=== PATIENT | female | born 1970 | race African-American/Black ===

== ENCOUNTER 2016-04-20 23:00 | Observation (INO) | payer MEDICAID, OTHER ==
[~2016-04-20] VITALS: Ht 172.7 cm; Wt 118.0 kg
[~2016-04-20 23:00] MED LIST: NAPR220T95 PO; TRAM50 PO
[2016-04-20 23:09] VITALS: BP 120/72; PULSE 82; RESP 16; TEMP 98.4; O2SAT 99
[2016-04-21] VITALS (8 sets, daily range): BP systolic 100–132; BP diastolic 58–73; PULSE 65–82; RESP 14–16; TEMP 98.4; O2SAT 98–100
--- NOTE | 2016-04-21 01:10 | PD ---
HPI Chief Complaint: Skin Problem Time Seen by Provider: 00:11 Travel History International Travel<30 days: No Contact w/Intl Traveler<30days: No Traveled to known affect area: No History of Present Illness HPI This is a pleasant 45-year-old female who arrives to the ER complaining of face rash for about 2 weeks. The rash is painful. The pain is constant and worse with palpation. She tried a blue Star ointment as well as lemon juice and peroxide at home. The aunt thinks may palpable little bit. She's had no visual change. She's had no tinnitus otalgia or otorrhea. She denies fever or recent injury to the affected areas. No similar prior episode has occurred. She denies a past medical history. She had a total abdominal hysterectomy couple years prior. She denies exposure to potential environmental allergens children's. She does not smoke tobacco or drink alcohol. Additionally she notes today lesion on the second left distal phalanx. PFSH Past Medical History Diabetes: Yes Patient Takes Glucophage: No Diminished Hearing: No Integumentary: Yes Immunizations Current: Yes Tetanus Vaccination: > 5 Years Influenza Vaccination: No ?: Not Tubal Ligation: Yes Past Surgical History Hysterectomy: Yes (Complete 2014) Social History Alcohol Use: No Tobacco Use: No Substance Use: No Allergies-Medications (Allergen,Severity, Reaction): Coded Allergies: No Known Allergies (Verified , 04/21/16) Reported Meds & Prescriptions Reported Meds & Active Scripts Active No Active Prescriptions or Reported Medications Review of Systems General / Constitutional: No: Fever Skin: Positive Rash Physical Exam Narrative GENERAL: 45-year-old female pleasant SKIN: Warm and dry. Clusters of hyperpigmented vesicular lesions about the forehead, about the upper neck, about the external ear without involvement of the ext auditory canal or TM, no involvement of the nose, no involvement of the eyes. Lesions are tender to palpation. There is no bleeding of discharge. HEAD: Atraumatic. Normocephalic. EYES: Pupils equal and round. No scleral icterus. No injection or drainage. ENT: No nasal bleeding or discharge. Mucous membranes pink and moist. NEUROLOGICAL: Awake and alert. No obvious cranial nerve deficits. Motor grossly within normal limits. Five out of 5 muscle strength in the arms and legs. Normal speech. PSYCHIATRIC: Appropriate mood and affect; insight and judgment normal. Data Data Last Documented VS Vital Signs Date Time Temp Pulse Resp B/P Pulse Ox O2 Delivery O2 Flow Rate FiO2 04/21/16 00:40 16 04/21/16 00:24 98.4 82 120/72 99 VS noted Orders Complete Blood Count With Diff (04/21/16 01:12) Comprehensive Metabolic Panel (04/21/16 01:12) Blood Culture (04/21/16 01:12) Wound Culture And Gram Stain (04/21/16 01:12) Ecg Monitoring (04/21/16 01:12) Iv Access Insert/Monitor (04/21/16 01:12) Oximetry (04/21/16 01:12) Oxygen Administration (04/21/16 01:12) Acyclovir Inj (Zovirax Inj) (04/21/16 01:30) Methylprednisolone So Succ Inj (Solumedr (04/21/16 02:00) Clindamycin Inj (Cleocin Inj) (04/21/16 02:00) Place In Observation (04/21/16 ) Vital Signs (Adult) Q4H (04/21/16 02:19) Activity Oob With Assistance (04/21/16 02:19) Inventory Associate And Driver / Telemetry .CONTINUOUS (04/21/16 02:19) Diet Heart Healthy (04/21/16 Breakfast) Sodium Chloride 0.9% Flush (Ns Flush) (04/21/16 02:30) Sodium Chloride 0.9% Flush (Ns Flush) (04/21/16 09:00) Basic Metabolic Panel (Bmp) (04/22/16 06:00) Complete Blood Count With Diff (04/22/16 06:00) Case Management Consult (04/21/16 02:19) Enoxaparin Inj (Lovenox Inj) (04/21/16 09:00) Naloxone Inj (Narcan Inj) (04/21/16 02:30) Admit Order (Ed Use Only) (04/21/16 02:26) Labs Laboratory Tests Test 04/21/16 02:10 White Blood Count 7.6 TH/MM3 Red Blood Count 4.37 MIL/MM3 Hemoglobin 12.8 GM/DL Hematocrit 38.0 % Mean Corpuscular Volume 87.1 FL Mean Corpuscular Hemoglobin 29.3 PG Mean Corpuscular Hemoglobin 33.6 % Concent Red Cell Distribution Width 12.5 % Platelet Count 266 TH/MM3 Mean Platelet Volume 8.3 FL Neutrophils (%) (Auto) 38.9 % Lymphocytes (%) (Auto) 49.0 % Monocytes (%) (Auto) 7.7 % Eosinophils (%) (Auto) 2.1 % Basophils (%) (Auto) 2.3 % Neutrophils # (Auto) 3.0 TH/MM3 Lymphocytes # (Auto) 3.6 TH/MM3 Monocytes # (Auto) 0.6 TH/MM3 Eosinophils # (Auto) 0.2 TH/MM3 Basophils # (Auto) 0.2 TH/MM3 CBC Comment AUTO DIFF Sodium Level 144 MEQ/L Potassium Level 4.1 MEQ/L Chloride Level 109 MEQ/L Carbon Dioxide Level 27.4 MEQ/L Anion Gap 8 MEQ/L Blood Urea Nitrogen 17 MG/DL Random Glucose 96 MG/DL Calcium Level 9.0 MG/DL Albumin 3.4 GM/DL MDM Medical Decision Making Medical Screen Exam Complete: Yes Emergency Medical Condition: Yes Medical Record Reviewed: Yes Differential Diagnosis herpes zoster, cellulitis, superinfected zoster rash, herpetic lilly, tinea rash, dermatitis Narrative Course Diagnoses rash is somewhat uncertain. Cyanosis or infestation is of concern Acyclovir, clindamycin and methylprednisolone started. 23 hour obs for ID evaluation and IV antiviral/antibiotics and pain control. Fluroscene stain of the eyes revealed no ocular involvement. TM's clean. d/w Dr Constantino Procedures Procedure Narrative INTRAVENOUS IV access: Ultrasound was employed to place an IV in the region of the right antecubital fossa. Patient tolerated well. Aseptic technique employed. Diagnosis Primary Impression: Rash of face Admitting Information Admitting Physician Requests: Observation Scripts No Active Prescriptions or Reported Meds Pieter Carrasco MD Apr 21, 2016 01:10
[2016-04-21] MEDS ORDERED: ACYCLOVIR INJ 500 MG in SODIUM CHLORIDE 0.9% INJ 100 ML IV ONE (01:30)
[2016-04-21] MEDS ORDERED: CLINDAMYCIN INJ 900 MG in SODIUM CHLORIDE 0.9% INJ 100 ML IV ONE (02:00)
[2016-04-21] MEDS ORDERED: methylPREDNISolone SOD SUCC 125 MG/2 ML VIAL IV PUSH ONE (02:00)
[2016-04-21] MEDS ORDERED: NALOXONE HCL 0.4 MG/ML AMP IV PRN (02:30)
[2016-04-21] MEDS ORDERED: SODIUM CHLORIDE 0.9% FLUSH 5 ML FLUSH FLUSH PRN (02:30)
[2016-04-21 02:39] LABS: BASOPHIL # 0.2 TH/MM3 (0-0.2); BASOPHIL % 2.3 % (0.0-2.0); EOSINOPHIL # 0.2 TH/MM3 (0-0.4); EOSINOPHIL % 2.1 % (0.0-4.0); LYMPHOCYTE # 3.6 TH/MM3 (1.0-4.8); MEAN CELL VOLUME 87.1 FL (80.0-100.0); MEAN CORPUSCULAR HEMOGLOBIN 29.3 PG (27.0-34.0); MEAN CORPUSCULAR HGB CONC 33.6 % (32.0-36.0); MONO % 7.7 % (0.0-8.0); NEUT % 38.9 % (16.0-70.0); PLATELET COUNT 266 TH/MM3 (150-450); RED BLOOD COUNT 4.37 MIL/MM3 (4.00-5.30); RED CELL DISTRIBUTION WIDTH 12.5 % (11.6-17.2); WHITE BLOOD COUNT 7.6 TH/MM3 (4.0-11.0)
[2016-04-21 02:48] LABS: HEMO FLAGS AUTO DIFF
[2016-04-21 02:49] LABS: CHLORIDE 109 MEQ/L (98-107); POTASSIUM 4.1 MEQ/L (3.5-5.1); SODIUM (NA) 144 MEQ/L (136-145)
[2016-04-21 02:53] LABS: ANION GAP 8 MEQ/L (5-15); BICARBONATE 27.4 MEQ/L (21.0-32.0); BLOOD UREA NITROGEN 17 MG/DL (7-18)
[2016-04-21 02:56] LABS: ALT (GPT) 23 U/L (10-53); AST (GOT) 12 U/L (15-37); GLOMERULAR FILTRATION RATE 88 ML/MIN (>89)
[2016-04-21 02:57] LABS: TOTAL BILIRUBIN ADULT 0.2 MG/DL (0.2-1.0)
[2016-04-21 02:59] LABS: ALKALINE PHOSPHATASE 109 U/L (45-117)
[2016-04-21 03:29] LABS: BANDS 2 % (0-6); EOSINOPHILS 1 % (0-4); NEUTROPHIL # MANUAL DIFF 2.6 TH/MM3 (1.8-7.7); POLYS (SEG NEUTROPHILS) 32 % (16-70); WBC DIFF SAMPLE 100
[2016-04-21 03:30] LABS: PLATELET ESTIMATE SMEAR NORMAL (NORMAL); PLATELET MORPHOLOGY NORMAL (NORMAL); SCAN/DIFF FINAL DIFF MANUAL
[2016-04-21] MEDS ORDERED: ENOXAPARIN SODIUM 40 MG/0.4 ML SYRINGE SQ SCH (09:00)
[2016-04-21] MEDS ORDERED: SODIUM CHLORIDE 0.9% FLUSH 5 ML FLUSH FLUSH SCH (09:00)
[2016-04-21] MEDS ORDERED: ACYCLOVIR INJ 1,050 MG in SODIUM CHLORIDE 0.9% INJ 150 ML IV ONE (09:00)
--- NOTE | 2016-04-21 13:51 | RADHPO ---
EXAM DATE/TIME: 04/21/2016 13:33 [place] COMPARISON: No previous studies available for comparison. INDICATIONS : Rash on face and hand, complains of chest pain. MEDICAL HISTORY : None. SURGICAL HISTORY : None. ENCOUNTER: Initial ACUITY: 1 week PAIN SCORE: 8/10 LOCATION: Bilateral chest FINDINGS: PA and lateral views of the chest demonstrate the lungs to be symmetrically aerated without evidence of mass, infiltrate or effusion. The cardiomediastinal contours are unremarkable. Osseous structure s are intact. CONCLUSION: No acute disease. Lew Irene MD FACR on April 21, 2016 at 13:49 Board Certified Radiologist. This report was verified electronically.
--- NOTE | 2016-04-21 13:55 | HHI.HP ---
[facility]ician No Primary Care Physician Admission Diagnosis Rash; Poss Bilat Facial Zoster; Poss Herpetic Claudia Diagnoses: (1) Rash of face Diagnosis: Principal Chief Complaint: Facial rash Travel History International Travel<30 Days: No Contact w/Intl Traveler <30 Da: No Traveled to Known Affected Are: No History of Present Illness 45-year-old Afro-[place] female with no chronic medical illnesses who presented to hospital because of a persistent recurrent facial rash. Patient indicates that she developed a facial rash which appears to have a burning sensation and pain. She has multiple spots on bilateral jaw area, Behind the left ear, and across the middle forehead. She states that she is tried blue Star ointment, lemon juice, and peroxide without any relief or improvement. Because it did not get any better she came to the hospital for evaluation. Patient evaluated emergency department had workup performed to include full optical evaluation with staining without any signs of dendritic lesions. Upon review of the medical records it does appear that the patient has had previous ER visits for facial dermatitis, skin lesions since 2007. ER physician recommended patient be observed in the hospital. Review of Systems Constitutional: DENIES: Diaphoretic episodes, Fatigue, Fever, Weight gain, Weight loss, Chills, Dizziness, Change in appetite, Night Sweats Eyes: DENIES: Diplopia, Eye inflammation, Eye pain, Vision loss, Double Vision Ears, nose, mouth, throat: DENIES: Vertigo, Nasal discharge, Throat pain, Ear Pain, Running Nose, Sinus Pain Respiratory: DENIES: Apneas, Cough, Snoring, Wheezing, Hemoptysis, Sputum production, Shortness of breath Cardiovascular: DENIES: Chest pain, Palpitations, Syncope, Dyspnea on Exertion , Lower Extremity Edema, Orthopnea Gastrointestinal: DENIES: Abdominal pain, Black stools, Bloody stools, Constipation, Diarrhea, Nausea, Vomiting, Difficulty Swallowing, Anorexia Musculoskeletal: DENIES: Joint pain, Muscle aches, Stiffness, Joint Swelling, Back pain, Neck pain Integumentary: COMPLAINS OF: Abnormal pigmentation Neurologic: DENIES: Abnormal gait, Headache, Localized weakness, Paresthesias, Seizures, Speech Problems, Tremor, Poor Balance Past Family Social History Past Medical History No chronic medical illnesses Past Surgical History Tubal ligation Hysterectomy Reported Medications Reported Meds & Active Scripts Active No Active Prescriptions or Reported Medications Allergies: Coded Allergies: No Known Allergies (Verified , 04/21/16) Family History Reviewed and significant for mother with diabetes Social History Patient denies any tobacco, alcohol or illicit drugs Physical Exam Vital Signs Vital Signs Date Time Temp Pulse Resp B/P Pulse Ox O2 Delivery O2 Flow Rate FiO2 04/21/16 11:15 75 16 132/69 99 Room Air 04/21/16 08:05 67 14 105/58 98 Room Air 04/21/16 05:59 68 16 04/21/16 05:58 68 16 100/59 98 Room Air 04/21/16 03:00 70 16 04/21/16 02:56 70 16 119/60 100 Room Air 04/21/16 02:52 78 16 119/60 99 Room Air 04/21/16 00:40 16 04/21/16 00:24 98.4 82 16 120/72 99 04/20/16 23:09 98.4 82 16 120/72 99 Physical Exam GENERAL: Well-developed, well-nourished, in no acute distress. alert and orientated HEENT: Head is normocephalic without any lesions or masses noted. Facial features are symmetric. Eyes: Pupils equal round reactive to light. Extraocular muscles are intact. Conjunctivae were clear. Oropharyngeal: Pharynx without any erythema edema. Tongue is midline without deviation. Buccal mucosa is moist without any masses or lesions NECK: Supple without any masses. Trachea midline no deviation. No JVD, no bruits are appreciated CARDIAC: Regular rhythm, regular rate. S1/S2 are heard. No murmurs gallops or rubs. LUNGS: Clear to auscultation bilaterally. No wheeze, rhonchi or rales. No use of accessory muscles on inspiration or expiration. ABDOMEN: Soft, nontender. Nondistended. Bowel sounds heard in all 4 quadrants. No organomegaly or masses. Negative rebound, negative guarding EXTREMITIES: No edema, pulses are equal bilaterally. No cyanosis or clubbing NEUROLOGY: Mood and affect appear appropriate. Cranial nerves II through XII grossly intact. Muscle strength 5/5 in upper and lower extremities bilaterally. Deep tendon reflexes are 2+ in upper and lower extremities bilaterally. SKIN: The face does have multiple lesions noted across the forehead, bilateral, left postauricular. Lesions are flat dark coloration without any vesicle appearance, does not appear to have erythematous base. Laboratory Laboratory Tests Test 04/21/16 02:10 White Blood Count 7.6 Red Blood Count 4.37 Hemoglobin 12.8 Hematocrit 38.0 Mean Corpuscular Volume 87.1 Mean Corpuscular Hemoglobin 29.3 Mean Corpuscular Hemoglobin 33.6 Concent Red Cell Distribution Width 12.5 Platelet Count 266 Mean Platelet Volume 8.3 Neutrophils (%) (Auto) 38.9 Lymphocytes (%) (Auto) 49.0 Monocytes (%) (Auto) 7.7 Eosinophils (%) (Auto) 2.1 Basophils (%) (Auto) 2.3 Neutrophils # (Auto) 3.0 Lymphocytes # (Auto) 3.6 Monocytes # (Auto) 0.6 Eosinophils # (Auto) 0.2 Basophils # (Auto) 0.2 CBC Comment AUTO DIFF Differential Total Cells 100 Counted Neutrophils % (Manual) 32 Band Neutrophils % 2 Lymphocytes % 53 Monocytes % 12 Eosinophils % 1 Neutrophils # (Manual) 2.6 Differential Comment FINAL DIFF MANUAL Platelet Estimate NORMAL Platelet Morphology Comment NORMAL Red Cell Morphology Comment NORMAL Sodium Level 144 Potassium Level 4.1 Chloride Level 109 Carbon Dioxide Level 27.4 Anion Gap 8 Blood Urea Nitrogen 17 Creatinine 0.84 Estimat Glomerular Filtration 88 Rate Random Glucose 96 Calcium Level 9.0 Total Bilirubin 0.2 Aspartate Amino Transf 12 (AST/SGOT) Alanine Aminotransferase 23 (ALT/SGPT) Alkaline Phosphatase 109 Total Protein 6.9 Albumin 3.4 Date/Time Procedure Status Source Growth 04/21/16 02:17 Aerobic Blood Culture Received Blood Peripheral Pending 04/21/16 02:17 Anaerobic Blood Culture Received Blood Peripheral Pending Result Diagram: 04/21/16 0210 04/21/16 0210 Assessment and Plan Assessment and Plan Facial lesions bilaterally: Does not appear to follow criteria for herpes zoster. ER physician did do full upper medical examination with fluorescein staining without any signs of dendritic lesions. Patient has had previous ER visits for similar facial rashes. We'll obtain chest x-ray to evaluate and rule out sarcoidosis. Patient was given acyclovir, clindamycin, Solu-Medrol and emergency department. Infectious disease was consulted for further recommendations. Patient will likely need to have outpatient follow-up with dermatology. No acute life-threatening lesion at this time. DVT prevention: Lovenox Written by Gorge Danielle PA-C, acting as scribe for Dr. Huang on 04/21/16 at 1630. The documentation accurately reflects the work and decisions performed face-to- face by Dr. Huang on 04/21/16 at 1630. Discharge disposition Discharge home in stable condition Activity: Ad nabor. Diet: Regular diet Medications per medication reconciliation Follow-up primary medical doctor one week Gorge Danielle Apr 21, 2016 13:55 Savana Huang MD Apr 21, 2016 18:14
[2016-04-21] MEDS ORDERED: ACETAMINOPHEN 325 MG TAB PO PRN (15:00)
--- NOTE | 2016-04-21 15:41 | PD.CONS ---
History of Present Illness Service Infectious Disease Consult Requested By Dr Constantino Reason for Consult Evaluate patient with facial rash Primary Care Physician No Primary Care Physician Diagnoses: History of Present Illness Patient seen and examined. Records reviewed. Patient is a 45-year-old female presented to the hospital for further evaluation of painful rash on her face. She first noted the rash about 2 weeks ago and it was below and behind both ears. She said it looked fine red at that time and was very tender and sensitive to touch. Soon after that she developed more skin rash on her for head and she also had a little spot on her left middle finger. She busted the one on her left finger but it didn't really draining much. She denies any fever or chills. She has no prior history of similar rash. She has not had any joint problems. No respiratory, GI or any urinary complaints. Because of the rash and the pain, she presented to the hostile for further evaluation and treatment. Patient has not been febrile. Her WBC is normal. There was some question of zoster, and patient got a dose of acyclovir. Infectious disease consultation has been requested to evaluate the patient. Review of Systems Constitutional: DENIES: Fever, Chills, Night Sweats Eyes: DENIES: Eye pain Ears, nose, mouth, throat: DENIES: Oral lesions, Throat pain, Ear Pain, Sinus Pain, Toothache Respiratory: DENIES: Cough, Shortness of breath Cardiovascular: DENIES: Chest pain, Palpitations, Syncope Gastrointestinal: DENIES: Abdominal pain, Diarrhea, Nausea, Vomiting, Difficulty Swallowing Genitourinary: DENIES: Urgency, Dysuria Musculoskeletal: DENIES: Joint pain, Joint Swelling Integumentary: COMPLAINS OF: Rash, DENIES: Nail changes, Breast masses, Breast skin changes Hematologic/lymphatic: DENIES: Bruising, Lymphadenopathy Neurologic: DENIES: Headache Psychiatric: DENIES: Confusion Past Family Social History Allergies: Coded Allergies: No Known Allergies (Verified , 04/21/16) Past Medical History None Past Surgical History Tubal ligation Hysterectomy Active Ordered Medications Tylenol Lovenox One dose Acyclovir, Clindamycin, Solumedrol 125 mg IV Social History No smoking No ETOH abuse No illicit drug use Physical Exam Vital Signs Vital Signs Date Time Temp Pulse Resp B/P Pulse Ox O2 Delivery O2 Flow Rate FiO2 04/21/16 15:05 71 15 119/68 100 Room Air 04/21/16 11:15 75 16 132/69 99 Room Air 04/21/16 08:05 67 14 105/58 98 Room Air 04/21/16 05:59 68 16 04/21/16 05:58 68 16 100/59 98 Room Air 04/21/16 03:00 70 16 04/21/16 02:56 70 16 119/60 100 Room Air 04/21/16 02:52 78 16 119/60 99 Room Air 04/21/16 00:40 16 04/21/16 00:24 98.4 82 16 120/72 99 04/20/16 23:09 98.4 82 16 120/72 99 Physical Exam GENERAL: This is an obese, well-developed female, awake and alert, in no apparent distress. SKIN: Cool and dry. She has flat large macules that are blackish purplish in color, on her forehead, in jaw area, preauricular area. HEAD: Atraumatic. Normocephalic. No temporal or scalp tenderness. EYES: Pupils equal round and reactive. Extraocular motions intact. No scleral icterus. No injection or drainage. ENT: Nose without bleeding, or purulent drainage. Moist oral mucosa. Throat without erythema, tonsillar hypertrophy or exudate. Uvula midline. Airway patent. NECK: Trachea midline. No JVD or lymphadenopathy. Supple, nontender, no meningeal signs. CARDIOVASCULAR: Regular rate and rhythm without murmurs, gallops, or rubs. RESPIRATORY: Clear to auscultation. Breath sounds equal bilaterally. No wheezes , rales, or rhonchi. GASTROINTESTINAL: Abdomen soft, non-tender, nondistended. Bowel sounds present and normoactive. No hepato-splenomegaly, or palpable masses. No guarding. MUSCULOSKELETAL: Extremities without clubbing, cyanosis, or edema. No joint tenderness, effusion, or edema noted. No calf tenderness. Negative Homans sign bilaterally. NEUROLOGICAL: Awake and alert. Cranial nerves II through XII intact. Motor and sensory grossly within normal limits. Five out of 5 muscle strength in all muscle groups. Normal speech. PSYCH: Normal affect, calm and cooperative Laboratory Laboratory Tests Test 04/21/16 02:10 White Blood Count 7.6 Red Blood Count 4.37 Hemoglobin 12.8 Hematocrit 38.0 Mean Corpuscular Volume 87.1 Mean Corpuscular Hemoglobin 29.3 Mean Corpuscular Hemoglobin 33.6 Concent Red Cell Distribution Width 12.5 Platelet Count 266 Mean Platelet Volume 8.3 Neutrophils (%) (Auto) 38.9 Lymphocytes (%) (Auto) 49.0 Monocytes (%) (Auto) 7.7 Eosinophils (%) (Auto) 2.1 Basophils (%) (Auto) 2.3 Neutrophils # (Auto) 3.0 Lymphocytes # (Auto) 3.6 Monocytes # (Auto) 0.6 Eosinophils # (Auto) 0.2 Basophils # (Auto) 0.2 CBC Comment AUTO DIFF Differential Total Cells 100 Counted Neutrophils % (Manual) 32 Band Neutrophils % 2 Lymphocytes % 53 Monocytes % 12 Eosinophils % 1 Neutrophils # (Manual) 2.6 Differential Comment FINAL DIFF MANUAL Platelet Estimate NORMAL Platelet Morphology Comment NORMAL Red Cell Morphology Comment NORMAL Sodium Level 144 Potassium Level 4.1 Chloride Level 109 Carbon Dioxide Level 27.4 Anion Gap 8 Blood Urea Nitrogen 17 Creatinine 0.84 Estimat Glomerular Filtration 88 Rate Random Glucose 96 Calcium Level 9.0 Total Bilirubin 0.2 Aspartate Amino Transf 12 (AST/SGOT) Alanine Aminotransferase 23 (ALT/SGPT) Alkaline Phosphatase 109 Total Protein 6.9 Albumin 3.4 Date/Time Procedure Status Source Growth 04/21/16 02:17 Aerobic Blood Culture Received Blood Peripheral Pending 04/21/16 02:17 Anaerobic Blood Culture Received Blood Peripheral Pending Result Diagram: 04/21/16 0210 04/21/16 0210 Imaging Chest X-Ray 04/21/16 0000 Signed Impressions: Service Date/Time: Thursday, April 21, 2016 13:33 - CONCLUSION: No acute disease. Lew Irene MD FACR Assessment and Plan Assessment and Plan IMPRESSION Purplish black macules on face, etiology? - dose not look infectious - ?vascular, ?vasculitis RECOMMENDATION No isolation needed, since it is not VZV Patient could follow-up with dermatology as outpatient Clinically stable from ID standpoint and could be D/C anytime I will be available prn if with any other new ID issue or question Discussed Condition With D/W RN D/W Edie Meza PA-C, MD Apr 21, 2016 15:41
--- NOTE | 2016-04-21 16:32 | HHI.DCPOC ---
Discharge Care Plan Diagnosis: (1) Rash of face Goals to Promote Your Health * To prevent worsening of your condition and complications * To maintain your health at the optimal level Directions to Meet Your Goals Take your medications as prescribed Follow your dietary instruction Follow activity as directed Keep your appointments as scheduled Take your immunizations and boosters as scheduled If your symptoms worsen call your PCP, if no PCP go to Urgent Care Center or Emergency Room Smoking is Dangerous to Your Health. Avoid second hand smoke Call the 24-hour hour crisis hotline for domestic abuse at Gorge Danielle Apr 21, 2016 16:31
[2016-07-14] MEDS ORDERED: DOXY100C PO (23:10)
[2016-07-14] MEDS ORDERED: [UNRECOGNIZED DRUG - CODE] TOPICAL (23:10)
[2016-07-15] MEDS ORDERED: HYDR-3366 PO (00:56)
== END 2016-04-21 18:06 | disposition home or self-care (01) ==
LOC: PHED 23:00 → PHEDA 04-21 02:28 → PHEDH 04-21 06:27
PROVIDERS: ADMIT Hospitalist; ATTEND Hospitalist
DX: R21 Rash and other nonspecific skin eruption (principal); E11.9 Type 2 diabetes mellitus without complications
CPT/HCPCS: 71020; 80053; 85007; 85027; 87040; 87205; 96374; 99284; G0378; J0133; J1650; J2930